=== PATIENT | male | born 1985 | race Caucasian/White ===

== ENCOUNTER 2021-03-22 14:24 | Emergency (ER) | payer MEDICAID, SELFPAY ==
[2021-03-22 15:06] VITALS: BP 104/59; PULSE 79; RESP 16; TEMP 35.7; O2SAT 98; BMI 30.1
== END 2021-03-22 18:55 | disposition left against medical advice (07) ==
PROVIDERS: Emergency Provider Emergency Medicine
DX: R51.9 Headache, unspecified (principal); M54.6 Pain in thoracic spine
CPT/HCPCS: 99281; 99282